=== PATIENT | male | born 1940 | race Caucasian/White ===

== ENCOUNTER → 2024-02-16 12:13 | Outpatient (REF) | payer MEDICARE, SELFPAY ==
[2024-02-16 12:47] VITALS: BP 162/85; BP_SYST 85
== END ==
LOC: RADI 12:13
PROVIDERS: ATTENDING PHYSICIAN Orthopaedic Surgery; FAMILY PHYSICIAN Family Medicine
DX: M00.9 Pyogenic arthritis, unspecified (principal); M25.462 Effusion, left knee; M25.562 Pain in left knee
CPT/HCPCS: 20610; 77002; 87015; 87070; 87205

== ENCOUNTER 2024-08-08 06:26 | Day surgery (SDC) | payer MEDICARE, SELFPAY ==
[2024-08-08 08:47] LABS: Glucose - Point of Care 118 mg/dl (70-99)
== END 2024-08-08 10:18 | disposition home or self-care (01) ==
LOC: GI 06:26
PROVIDERS: ATTENDING PHYSICIAN Internal Medicine Gastroenterology
DX: Z12.11 Encounter for screening for malignant neoplasm of colon (principal); K57.30 Diverticulosis of large intestine without perforation or abscess without bleeding; D12.8 Benign neoplasm of rectum; K64.8 Other hemorrhoids; Z86.0100 Personal history of colon polyps, unspecified
CPT/HCPCS: 45385; 88305; 82962

== ENCOUNTER 2025-02-12 06:22 | Day surgery (SDC) | payer MEDICARE, SELFPAY ==
[2025-02-12 07:29] LABS: Glucose - Point of Care 118 mg/dl (70-99)
== END 2025-02-12 08:40 | disposition home or self-care (01) ==
LOC: GI 06:22
PROVIDERS: ATTENDING PHYSICIAN Internal Medicine Gastroenterology
DX: Z12.11 Encounter for screening for malignant neoplasm of colon (principal); Z86.0100 Personal history of colon polyps, unspecified; K64.8 Other hemorrhoids; Z98.890 Other specified postprocedural states
CPT/HCPCS: 45330; 82962